=== PATIENT | female | born 1985 | race Caucasian/White ===

== ENCOUNTER → 2018-03-22 | Outpatient (CLI) | payer OTHER ==
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
--- NOTE | 2018-03-22 12:02 | XR ---
EXAMINATION TYPE: XR shoulder complete LT DATE OF EXAM: 03/22/2018 COMPARISON: NONE HISTORY: Pain TECHNIQUE: Shoulder examined in 3 views FINDINGS: The humeral head articulates with the glenoid. The acromio-clavicular junction is normal. No acute fractures or dislocations are evident. A follow up study can be performed 7-10 days from acute trauma for continued pain. IMPRESSION: 1. Normal Shoulder
== END | disposition home or self-care (01) ==
LOC: RADXRYALE 11:26
PROVIDERS: ATTEND Physician Assistant Medical
DX: M25.512 Pain in left shoulder (principal); M40.292 Other kyphosis, cervical region
CPT/HCPCS: 72050

== ENCOUNTER → 2018-04-07 | Outpatient (CLI) | payer OTHER ==
--- NOTE | 2018-04-07 12:11 | CT ---
EXAMINATION TYPE: CT brain wo con DATE OF EXAM: 04/07/2018 COMPARISON: None HISTORY: Dizziness and giddiness, headache CT DLP: 963.60 mGycm. Automated Exposure Control for Dose Reduction was Utilized. TECHNIQUE: CT scan of the head is performed without contrast. FINDINGS: There is no acute intracranial hemorrhage, mass effect, or midline shift identified. The ventricles and sulci are within normal limits in size. The globes are intact and the visualized sin uses are clear. No suspicious opacification of mastoid air cells is present bilaterally. Incidental m etallic tongue ornament on localizer. IMPRESSION: No acute intracranial hemorrhage or midline shift is seen. No suspicious finding is seen to account for patient's symptoms.
== END | disposition home or self-care (01) ==
LOC: RADCTMAIN 11:42
PROVIDERS: ATTEND Physician Assistant Medical
DX: R42 Dizziness and giddiness (principal); R51 Headache
CPT/HCPCS: 70450

== ENCOUNTER → 2019-02-15 | Outpatient (CLI) | payer OTHER ==
--- NOTE | 2019-02-15 17:08 | XR ---
Left hand HISTORY: Thumb and wrist pain 3 views of the left hand Bone mineralization, joint spaces and alignment are maintained. IMPRESSION: No fracture or dislocation.
== END | disposition home or self-care (01) ==
LOC: RADXRYALE 15:49
PROVIDERS: ATTEND Physician Assistant
DX: M25.532 Pain in left wrist (principal); S63.602A Unspecified sprain of left thumb, initial encounter

== ENCOUNTER → 2019-10-28 | Outpatient (CLI) | payer OTHER ==
--- NOTE | 2019-10-28 09:16 | XR ---
EXAMINATION TYPE: XR thoracic spine complete DATE OF EXAM: 10/28/2019 CLINICAL HISTORY: Acute extreme pain in the ribs after strain injury. TECHNIQUE: Frontal and lateral views of thoracic spine are obtained. COMPARISON: None. FINDINGS: Exam is limited due to patient motion from pain. There is a very mild dextroscoliosis in a long segment of the thoracic spine that may be positional in nature. Thoracic spine show satisfactory alignment without evidence of acute fracture or dislocation. Vertebral body heights and disc space heights are preserved. Visualized ribs are unremarkable. IMPRESSION: No gross evidence of acute fracture or malalignment is seen in the thoracic spine althoug h the exam is limited as there is patient motion given the patient's pain. Mild long segment dextros coliosis of the thoracic spine may be positional in nature.
--- NOTE | 2019-10-28 09:17 | XR ---
EXAMINATION TYPE: XR lumbosacral spine min 4V DATE OF EXAM: 10/28/2019 CLINICAL HISTORY: Acute extreme back pain with no known injury. TECHNIQUE: Frontal, lateral, and oblique images of the lumbar spine are obtained. COMPARISON: None FINDINGS: There are 5 lumbar type vertebral bodies identified. The lumbar spine shows satisfactory alignment without evidence of acute fracture or dislocation. Vertebral body heights and disk space he ights are within normal limits. There is a levoscoliosis of the lumbar spine. The oblique images lisandra ear within normal limits. The overlying soft tissue appears unremarkable. IMPRESSION: No acute fracture or malalignment is seen in the lumbar spine. Levoscoliosis of the lumb ar spine.
== END | disposition home or self-care (01) ==
LOC: RADXRYALE 08:35
PROVIDERS: ATTEND Physician Assistant
DX: M41.84 Other forms of scoliosis, thoracic region (principal); M41.86 Other forms of scoliosis, lumbar region
CPT/HCPCS: 72072; 72110

== ENCOUNTER → 2019-11-04 | Outpatient (CLI) | payer OTHER ==
--- NOTE | 2019-11-04 08:24 | CT ---
EXAMINATION TYPE: CT chest wo con DATE OF EXAM: 11/04/2019 COMPARISON: None HISTORY: Pain CT DLP: 497.7 mGycm. Automated Exposure Control for Dose Reduction was Utilized. TECHNIQUE: CT scan of the thorax is performed without IV contrast. FINDINGS: LUNGS: The lungs are grossly clear, there is no concerning parenchymal mass or nodule identified. T here is no pleural effusion or pneumothorax seen. The tracheobronchial tree is patent. MEDIASTINUM: Lack of IV contrast is noted to limit evaluation for mediastinal and especially hilar ad enopathy. There are no definitive greater than 1 cm hilar or mediastinal lymph nodes. No cardiomega ly or pericardial effusion is seen. OTHER: No additional significant abnormality is seen. IMPRESSION: No acute intrathoracic process
== END | disposition home or self-care (01) ==
LOC: RADCTMAIN 07:12
PROVIDERS: ATTEND Family Medicine
DX: R07.89 Other chest pain (principal); M95.4 Acquired deformity of chest and rib
CPT/HCPCS: 71250

== ENCOUNTER → 2019-11-14 | Outpatient (CLI) | payer OTHER ==
--- NOTE | 2019-11-14 16:27 | XR ---
EXAMINATION TYPE: XR ribs LT w pa chest xray DATE OF EXAM: 11/14/2019 COMPARISON: NONE HISTORY: Pain TECHNIQUE: Single view of the chest 4 views of the ribs are submitted. FINDINGS: The lungs are clear. No Evidence for pneumothorax. No evidence for focal contusion. Medi astinal structures are midline. Evaluation of the ribs fails to demonstrate evidence for displaced r ib fracture or secondary sign of rib fracture. IMPRESSION: Negative study
== END | disposition home or self-care (01) ==
LOC: RADXRYALE 10:50
PROVIDERS: ATTEND Physician Assistant
DX: R07.81 Pleurodynia (principal)

== ENCOUNTER → 2020-08-15 | Outpatient (CLI) | payer OTHER ==
[2020-08-15 10:28] VITALS: RESP 20
[2020-08-15 10:33] VITALS: BP 127/90; PULSE 118; TEMP 98.4
--- NOTE | 2020-08-15 10:46 | P.PAINCN ---
History of Present Illness - Reason for Consult Consult date: 08/15/20 - History of Present Illness This is a 35-year-old patient who comes in with a chief complaint of left sided thoracic pain as well as diffuse body pain. Her pain started mostly in September, she said she was moving a table and she felt a "pop" and after that she said a mass formed on her left thoracic flank area. This was surgically removed about a week ago. She says that the surgery was successful her pain has overall decreased, however she still complains significant pain throughout her body. Pain is located in the mid to low back as well as the hands and bilateral feet described as sharp stabbing numbing tingling. Pain is exacerbated by any form of activity and indications only help a little bit. She has noted that she has seen multiple doctors in the [facility] and other states, some of which I told her she has some type type of torn tendon in her trapezius however there is no management to be done in terms of an operative standpoint. She does a long- standing history of falls positive Lyme disease and fibromyalgia which she says used to be controlled better with medications prior to this incident. Now she feels that since the incident she has pain everywhere which has gotten sign ificantly worse. uses flexeril 10 mg TID, motrin 800 Q6H, tylenol 1000 gram Q6H lyrica 300 mg BID Patient denies adverse drug effects from medications. Patient also denies new- onset weakness, bowel/bladder incontinence, or any other signs or symptoms of cauda equina syndrome. There are no signs of acute intoxication, and no indications of medication diversion or overuse. In addition to above, 13-point review of systems is also negative for chest pain, shortness of breath, changes in vision, changes in hearing, new onset weakness, abdominal pain, diarrhea, extreme fatigue, malaise, fever, skin changes, homicidal or suicidal ideation, or bowel or bladder incontinence. Physical exam: Vital Signs: Reviewed in EMR GENERAL: tearful, anxious PSYCH: Mood and affect is appropriate. Awake, alert, and oriented SKIN: Skin color, texture, turgor normal, no rashes or lesions HEENT: Normocephalic, atraumatic. EOM intact CV: No pedal edema RESP: Respirations are unlabored, no audible wheezing GI: Abdomen non-distended MUSCULOSKELETAL: Bilateral upper and lower extremity strength is normal and symmetric. No atrophy or tone abnormalities are noted. Neck: pain to palpation over the cervical paraspinous muscles. pain with neck flexion, extension, or lateral flexion. No obvious deformity or signs of trauma. Normal cervical lordotic curve and normal cervical spine range of motion Thoracic spine: Well healing wound over the left flank area. Tenderness to palpation throughout the thoracic spine. Lumbar spine: Straight leg raising in the sitting position is negative for radicular pain. pain to palpation over the lumbar spine and paraspinous muscles. pain with facet loading and back extension/rotation. NEUR: Bilateral upper and lower extremity coordination and muscle stretch reflexes are physiologic and symmetric. Negative clonus. No loss of sensation is noted. Cranial nerves are grossly intact. Imaging: She has multiple imaging modalities in her chart. She has received a lumbar, thoracic, cervical, MRI and chest CT which are all normal Assessment: 1. Fibromyalgia 2. Centralized pain 3. Plan: 1. Explanation: Diagnoses, prognoses, and multiple treatment options including but not limited to physical therapy, interventional therapies, medication management and surgery were discussed with the patient and all questions were answered to the patient's satisfaction. 2. Investigations: None, patient has had many imaging modalities which have not showed any targets for injection. 3. Counseling: The patient was counseled for 3 minutes on SMOKING CESSATION, BODY MASS INDEX, EXERCISE. Specifically, the patient was instructed regarding the importance of smoking cessation, weight control, and exercise in the context of both chronic pain and overall health. 4. Procedures: Given that her thoracic MRI was normal I do not feel that she is a spine injection candidate. Patient is convinced that her flank pain is related to her hand pain as well as her feet pain. There is no convincing evidence on any imaging modality that these pains are related or caused by anything coming from the spine area. I did offer trigger point injections, however the patient did not want needles just being randomly injected into any spot. She wanted me to inject medication into her she felt she was having pain, however this was a large area covering her mid back as well as her chest area and I said this is not feasible. Testing for an injection for torn trapezius, educated her that injections will not help with torn muscles and injecting steroid into an area of a torn ligament might decrease the healing potential. I did say that since she is a week out from surgery and her pain did decrease with the surgery, I encouraged her that the pain might get better over time. 5. Consultations: I did recommend pain psychology to her 6. Medications: I did offer her Cymbalta to help with her generalized pain complaints, patient does not want further medication management 7. Disposition: as needed Past Medical History Past Medical History: Fibromyalgia, Musculoskeletal Disorder Additional Past Medical History / Comment(s): Borderline elevated cholesterol. Back injury 09/2019, ongoing back pain; had mass exc lt side, NT occ. History of Any Multi-Drug Resistant Organisms: None Reported Past Surgical History: Tonsillectomy Additional Past Surgical History / Comment(s): Mass exc Lt flank 08/08/20. [place] teeth; 4 molars removed. Past Anesthesia/Blood Transfusion Reactions: Motion Sickness, Postoperative Nausea & Vomiting (PONV) Smoking Status: Former smoker - Past Family History Father Family Medical History: CVA/TIA, Myocardial Infarction ([place]) Mother Family Medical History: Fibromyalgia, Hypertension, Neurologic Disorder Medications and Allergies Home Medications Medication Instructions Recorded Confirmed Type Acetaminophen [Tylenol Extra 1,000 mg PO TID PRN 08/13/20 08/15/20 History Strength] B Complex-Vit C-Vit E-Zinc [Z-Bec] 1 tab PO DAILY 08/13/20 08/15/20 History Calcium/Magnesium/Zinc 1 each PO BID 08/13/20 08/15/20 History [Ryfvbqe-Xbmwkwjej-Akjy Tablet] Cyclobenzaprine [Flexeril] 10 mg PO TID 08/13/20 08/15/20 History Ergocalciferol [Vitamin D2] 50,000 unit PO FR 08/13/20 08/15/20 History Fever Few 500 mg PO DAILY 08/13/20 08/15/20 History Fexofenadine HCl [Alyce Allergy] 180 mg PO DAILY 08/13/20 08/15/20 History Ibuprofen [Motrin] 800 mg PO Q8H PRN 08/13/20 08/15/20 History Montelukast [Singulair] 10 mg PO HS 08/13/20 08/15/20 History Potassium Gluconate 99 mg PO BID 08/13/20 08/15/20 History Pregabalin [Lyrica] 300 mg PO BID 08/13/20 08/15/20 History Allergies Allergy/AdvReac Type Severity Reaction Status Date / Time amoxicillin Allergy Rash/Hives Verified 08/15/20 09:57 [place] And Derivatives Allergy Dyspnea Verified 08/15/20 09:57 [[place]] codeine Allergy Anaphylaxis Verified 08/15/20 09:57 Fish Containing Products Allergy Anaphylaxis Verified 08/15/20 09:57 fish oil Allergy Nausea & Verified 08/15/20 09:57 Vomiting hydrocodone Allergy Anaphylaxis Verified 08/15/20 09:57 Penicillins Allergy Rash/Hives Verified 08/15/20 09:57 Lysol Allergy Dyspnea Uncoded 08/15/20 09:57 PQRS Measure Charge Sheet PQRS Narrative: Smoking Status Current every day smoker Pain Intensity [Left Upper 3 Back] Hx Alcohol Use (MH) No Home Medications: Ambulatory Orders Acetaminophen [Tylenol Extra Strength] 1,000 mg PO TID PRN 08/13/20 B Complex-Vit C-Vit E-Zinc [Z-Bec] 1 tab PO DAILY 08/13/20 Calcium/Magnesium/Zinc [Kuqlizd-Dgesxvztx-Loxu Tablet] 1 each PO BID 08/13/20 Cyclobenzaprine [Flexeril] 10 mg PO TID 08/13/20 Ergocalciferol [Vitamin D2] 50,000 unit PO FR 08/13/20 Fever Few 500 mg PO DAILY 08/13/20 Fexofenadine HCl [Alyce Allergy] 180 mg PO DAILY 08/13/20 Ibuprofen [Motrin] 800 mg PO Q8H PRN 08/13/20 Montelukast [Singulair] 10 mg PO HS 08/13/20 Potassium Gluconate 99 mg PO BID 08/13/20 Pregabalin [Lyrica] 300 mg PO BID 08/13/20
== END | disposition home or self-care (01) ==
LOC: PNWHC3 09:50
PROVIDERS: ATTEND Anesthesiology
DX: G89.0 Central pain syndrome (principal); M79.7 Fibromyalgia; Z79.899 Other long term (current) drug therapy; Z79.1 Long term (current) use of non-steroidal anti-inflammatories (NSAID)
CPT/HCPCS: 99211

== ENCOUNTER → 2022-07-17 | Outpatient (CLI) | payer OTHER ==
--- NOTE | 2022-07-17 12:00 | XR ---
EXAMINATION TYPE: XR cervical spine comp DATE OF EXAM: 07/17/2022 TECHNIQUE: Frontal, lateral, oblique, and open mouth view of the cervical spine are obtained. HISTORY: [id number] CERVICALGIA,RADICULOPATHY COMPARISON: Cervical spine x-ray March 22, 2018 FINDINGS: The cervical spine is visualized from C1 thru the top inferior C7 level, alignment is stab le with some reversal of normal cervical curvature redemonstrated. Slight grade 1 anterolisthesis C4 on C5 is seen. The pre-vertebral soft tissue remains within normal limits. The C1-C2 articulation i s within normal limits on the open mouth view. Vertebral body heights and disc space heights are pre served. Suboptimal evaluation of C7-T1 disc space without dedicated swimmer's view. The oblique image s are within normal limits. Overlying soft tissue is unremarkable. IMPRESSION: As above.
== END | disposition home or self-care (01) ==
LOC: RADXRYALE 11:27
PROVIDERS: ATTEND Physician Assistant
DX: M43.12 Spondylolisthesis, cervical region (principal)
CPT/HCPCS: 72050

== ENCOUNTER → 2022-08-06 | Outpatient (CLI) | payer OTHER ==
--- NOTE | 2022-08-07 04:07 | MR ---
EXAMINATION TYPE: MR cervical spine wo con DATE OF EXAM: 08/06/2022 COMPARISON: None HISTORY: Neck pain, BUE numbness, dizziness. Multiplanar multiecho imaging of the cervical spine performed with no contrast. The cervical vertebra show some mild straightening. The disc spaces are fairly normal. There is mild posterior disc bulging from C3 to C7. There is larger disc bulging at C5-6 and C6-7. There is develop mentally large spinal canal and no spinal stenosis. Canal measures 10.5 mm at C4-5. The canal is 10.5 mm at C5-6. The brainstem is intact. Cervical spinal cord has normal signal pattern. No edema. There is no cervical paraspinal mass. The posterior elements are intact. IMPRESSION: Multilevel mild posterior cervical disc bulging. No spinal stenosis. No significant cervical disc her niation. No fracture.
== END | disposition home or self-care (01) ==
LOC: RADMRIMAIN 21:00
PROVIDERS: ATTEND Physician Assistant
DX: M50.222 Other cervical disc displacement at C5-C6 level (principal)
CPT/HCPCS: 72141

== ENCOUNTER → 2022-12-16 | Outpatient (CLI) | payer OTHER ==
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
== END | disposition home or self-care (01) ==
LOC: RADXRYALE 14:52
PROVIDERS: ATTEND Physician Assistant
DX: M79.671 Pain in right foot (principal)

== ENCOUNTER → 2022-12-30 | Outpatient (CLI) | payer OTHER ==
--- NOTE | 2022-12-30 15:50 | XR ---
EXAMINATION TYPE: XR pelvis AP view DATE OF EXAM: 12/30/2022 CLINICAL HISTORY: pain TECHNIQUE: Single view the pelvis is submitted. FINDINGS: No evidence for fracture, dislocation or bony lesion. Joint spaces are well-preserved. S I joints appear symmetric. IMPRESSION: 1. No acute fracture or dislocation seen. ICD 10 NO FRACTURE, INITIAL EVALUATION
== END | disposition home or self-care (01) ==
LOC: RADXRYALE 15:20
PROVIDERS: ATTEND Physician Assistant
DX: R10.2 Pelvic and perineal pain (principal)
CPT/HCPCS: 72170

== ENCOUNTER → 2023-11-09 | Outpatient (CLI) | payer OTHER ==
--- NOTE | 2023-11-10 11:02 | CA ---
Transthoracic Echo Report Name: Diana Hicks Age: 38 Gender: F : 1985 Exam Date: 11/09/2023 15:21 Exam Location: [facility] Ht (in): 66 Wt (lb): 240 Ordering Physician: Ignacio Bell DO Attending/Referring Phys: Carmen Cunningham PAC Box Tender Suly Martínez RDCS Procedure CPT: Indications: R06.02 SOB R53.89 FATIGUE R600 EDEMA Cardiac Hx: Technical Quality: Fair Contrast 1: Total Dose (mL): Contrast 2: Total Dose (mL): MEASUREMENTS (Male / Female) Normal Values 2D ECHO LV Diastolic Diameter PLAX 3.9 cm 4.2 - 5.9 / 3.9 - 5.3 cm LV Systolic Diameter PLAX 2.6 cm IVS Diastolic Thickness 1.2 cm 0.6 - 1.0 / 0.6 - 0.9 cm LVPW Diastolic Thickness 1.1 cm 0.6 - 1.0 / 0.6 - 0.9 cm LV Relative Wall Thickness 0.6 RV Internal Dim ED PLAX 3.3 cm LA Volume 36.0 cm??? 18 - 58 / 22 - 52 cm??? LA Volume Index 15.6 cm???/m??? 16 - 28 cm???/m??? M-MODE Aortic Root Diameter MM 3.2 cm LA Systolic Diameter MM 3.5 cm LA Ao Ratio MM 1.1 AV Cusp Separation MM 2.0 cm DOPPLER AV Peak Velocity 137.3 cm/s AV Peak Gradient 7.5 mmHg AV Mean Velocity 91.0 cm/s AV Mean Gradient 3.8 mmHg AV Velocity Time Integral 24.6 cm LVOT Peak Velocity 114.7 cm/s LVOT Peak Gradient 5.3 mmHg LVOT Velocity Time Integral 19.6 cm MV Area PHT 4.3 cm??? Mitral E Point Velocity 78.4 cm/s Mitral A Point Velocity 75.3 cm/s Mitral E to A Ratio 1.0 MV Deceleration Time 175.3 ms MV E' Velocity 18.2 cm/s Mitral E to MV E' Ratio 4.3 TR Peak Velocity 228.8 cm/s TR Peak Gradient 20.9 mmHg Right Ventricular Systolic Press 25.9 mmHg FINDINGS Left Ventricle Mildly increased left ventricular wall thickness. Left ventricular cavity size normal. Normal left ventricular systolic function with no obvious regional wall motion abnormalities. Left ventricular ejection fraction is estimated at 55-60 %. Right Ventricle Normal right ventricular size and function. Right ventricular systolic pressure within normal limits. Right Atrium Normal right atrial size. Left Atrium Normal left atrial size. Mitral Valve Structurally normal mitral valve. No mitral stenosis, regurgitation or prolapse. Aortic Valve Trileaflet aortic valve. No aortic valve stenosis or regurgitation. Tricuspid Valve Structurally normal tricuspid valve. Mild tricuspid regurgitation. Pulmonic Valve Structurally normal pulmonic valve. Trace pulmonic regurgitation. Pericardium No pericardial effusion. Aorta Normal size aortic root and proximal ascending aorta. CONCLUSIONS Left ventricular ejection fraction 55-60% Mild increased left ventricular wall thickness No mitral regurgitation Mild tricuspid regurgitation Previewed by: Dr. Live James DO (Electronically Signed) Final Date: 10 November 2023 11:01
== END | disposition home or self-care (01) ==
LOC: RADECHMAIN 14:44
PROVIDERS: ATTEND Family Medicine
DX: R06.02 Shortness of breath (principal); R60.0 Localized edema; R53.83 Other fatigue
CPT/HCPCS: 93306

== ENCOUNTER → 2024-01-07 | Outpatient (CLI) | payer OTHER ==
--- NOTE | 2024-01-13 11:24 | MR ---
EXAMINATION TYPE: MR brain wo con DATE OF EXAM: 01/07/2024 4:21 PM COMPARISON: NONE HISTORY: Dizziness, visual disturbances, migraines, neck pain, ringing in ears Multiplanar and multispin-echo imaging of the brain was performed . The ventricles, basal cisterns and sulci overlying the cerebral convexities are within normal limits. There is no evidence for midline shift or mass effect. Acute intracranial hemorrhage or extra-axial collection is not evident. The brain parenchyma reveals no abnormal increased signal. No acute edema is identified. The paranasal sinuses and mastoid air cells are well-aerated. IMPRESSION: Unremarkable MRI of the brain.
== END | disposition home or self-care (01) ==
LOC: RADMRIMAIN 15:49
PROVIDERS: ATTEND Family Medicine
DX: H53.8 Other visual disturbances (principal); G43.909 Migraine, unspecified, not intractable, without status migrainosus; H93.13 Tinnitus, bilateral; R41.89 Other symptoms and signs involving cognitive functions and awareness; R60.0 Localized edema
CPT/HCPCS: 70551

== ENCOUNTER → 2024-02-08 | Outpatient (CLI) | payer OTHER ==
--- NOTE | 2024-02-08 10:47 | MR ---
PRE AND POSTCONTRAST ENHANCED MRI OF THE BRAIN: CLINICAL HISTORY: Visual disturbances, dizziness, headache, left sided weakness. CONTRAST: Overlying the left upper quadrant there is a beaded radiopaque density which could reflect ingested foreign body. Correlate clinically. Comparison 01/07/2024 Multiplanar and multispin-echo imaging of the brain was performed both before and after the administr ation of contrast. The ventricles, basal cisterns and sulci overlying the cerebral convexities are within normal limits. There is no evidence for midline shift or mass effect. Acute intracranial hemorrhage or extra-axial collection is not evident. There are no abnormal areas of increased or decreased signal intensity within the brain parenchyma. Following contrast administration, there is no evidence for pathologic enhancement or enhancing mass. The paranasal sinuses and mastoid air cells are well-aerated. IMPRESSION: Unremarkable pre and postcontrast enhanced MRI of the brain.
== END | disposition home or self-care (01) ==
LOC: RADMRIMAIN 06:08
PROVIDERS: ATTEND Family Medicine
DX: R51.9 Headache, unspecified (principal); H53.8 Other visual disturbances; R41.89 Other symptoms and signs involving cognitive functions and awareness
CPT/HCPCS: 70553; A9585

== ENCOUNTER → 2024-10-24 | Outpatient (CLI) | payer OTHER ==
--- NOTE | 2024-10-25 08:42 | XR ---
EXAMINATION TYPE: XR cervical spine 5 views comp, XR shoulder complete 3 views RT DATE OF EXAM: 10/24/2024 COMPARISON: Cervical spine 07/17/2022 CLINICAL INDICATION: Female, 39 years old with history of [id number]; FINDINGS: Cervical spine: Reversal of the normal cervical lordosis but with preserved alignment. No predental space widening or prevertebral soft tissue swelling. Disc interspaces are maintained. No significant bony neuroforamin al narrowing on either side. Odontoid view shows no gross abnormality. Right shoulder: AC joint appears congruent and intact. Subacromial space is preserved. Smooth delineation to the grea ter tuberosity. No acute fracture, subluxation, or dislocation. IMPRESSION: 1. Cervical spine: Reversal of the normal cervical lordosis could be positional or due to muscle spas m. Otherwise, no specific radiographic abnormality seen. 2. Right shoulder: No acute osseous abnormality seen. [facility], Workstation: ED, 10/25/2024 8:39 AM
== END | disposition home or self-care (01) ==
LOC: RADXRYALE 16:31
PROVIDERS: ATTEND Physician Assistant
DX: M25.511 Pain in right shoulder (principal); M54.2 Cervicalgia; R51.9 Headache, unspecified; W19.XXXA Unspecified fall, initial encounter
CPT/HCPCS: 72050